=== PATIENT | female | born 1955 | race Caucasian/White ===

== ENCOUNTER 2021-01-22 21:48 | Emergency (ER) | payer MEDICARE ==
[~2021-01-22] VITALS: Ht 160 cm; Wt 95.7 kg
[2021-01-22] MEDS ORDERED: SPIRONOLACTONE25 MG PO (22:02)
[2021-01-22] MEDS ORDERED: SINGULAIR 10 MG10 M1 PO (22:03)
[2021-01-22] MEDS ORDERED: PEPCID AC10 MG PO (22:03)
[2021-01-22] MEDS ORDERED: CARVEDILOL3.125 MG PO (22:04)
[2021-01-22] MEDS ORDERED: OXYBUTYNIN 5 MG5 M2 PO (22:05)
[2021-01-22] MEDS ORDERED: VAZALORE81 MG PO (22:05)
[2021-01-22] MEDS ORDERED: ERYTHROMYCIN E3.5 G2 OPHTHALMIC (22:29)
[2021-01-22 22:37] VITALS: BP 143/87
== END 2021-01-22 22:37 | disposition home or self-care (01) ==
LOC: M.ERS 21:48
DX: H10.9 Unspecified conjunctivitis (principal); I50.9 Heart failure, unspecified; Z90.49 Acquired absence of other specified parts of digestive tract; Z79.899 Other long term (current) drug therapy; Z88.2 Allergy status to sulfonamides